=== PATIENT | male | born 1995 | race Asian ===

== ENCOUNTER → 2017-09-17 | Day surgery (SDC) | payer OTHER ==
[2017-09-15 10:11] VITALS: Ht 174 cm; Wt 106.8 kg
[~2017-09-17] VITALS: Ht 174 cm; Wt 106.8 kg
[~2017-09-17] MED LIST: AMOX875T PO; BENZOIN SPRAY 118 ML BTL TOP ONE; CEFAZOLIN 2000MG IV PUSH 15 ML IV SCH; DEXAMETHASONE SOD INJ 4 MG/ML VIAL ONE; FENTANYL CITRATE INJ 50 MCG/1 ML 2 ML VIAL ONE; GLYCOPYRROLATE INJ 0.2 MG/ML VIAL ONE; HYDR-5688 PO; HYDROCODONE/ACETAMIN 5/325MG TAB PO PRN; KETOROLAC TROMETHAMINE 30 MG/ML VIAL IV STA; KETOROLAC TROMETHAMINE 30 MG/ML VIAL ONE; LACTATED RINGER'S 1000ML 1,000 ML IV SCH; LIDOCAINE HCL 2% 2 ML VIAL (20MG/ML) ONE; MEPERIDINE HCL 25 MG/ML CARP ONE; METHYLENE BLUE 0.5% 10 ML VIAL ONE; MIDAZOLAM HCL 1 MG/ML 2ML VIAL ONE; MoRPHine SULFATE 2 MG/ML CARP IV PRN; NEOSTIGMINE METHYLSULFATE 5 MG/5 ML SYR ONE; ONDANSETRON INJ 2 MG/ML 2 ML VIAL IV PRN; ONDANSETRON INJ 2 MG/ML 2 ML VIAL ONE; PROPOFOL IV EMULSION 10 MG/ML 20 ML VIAL IV ONE; ROCURONIUM BROMIDE 10 MG/ML 5 ML VIAL IV ONE
--- NOTE | 2017-09-17 11:10 | History & Physical Bridge Note ---
H&P Re-Evaluation Bridge Note: I have examined the patient, reviewed the History & Physical and in the interval since the performance of the History & Physical I have noted the following changes of clinical significance: No changes noted
--- NOTE | 2017-09-17 11:12 | Discharge Instructions-SurgCtr ---
Discharge Instructions Date of Service Sep 17, 2017. Visit Reason for Visit: Pilonidal Cyst Discharge Discharge Diagnosis / Problem: pilonidal cyst Discharge Goals Goal(s): Decrease discomfort, Prevent Disease Progression Activity Recommendations Activity Limitations: as noted below Lifting Limitations: no more than 10 pounds Exercise/Sports Limitations: none, until after follow-up appointment May Resume Sexual Activity: after follow-up appointment Shower/Bathe: tomorrow (no tub baths) Anesthesia . Post Anesthesia Instructions: If you have had General Anesthesia or IV Sedation: * Do not drive today. * Resume driving when surgeon permits. * Do not make important decisions or sign legal documents today. * Call surgeon for: 1. Temperature elevations greater than 101 degrees F. 2. Uncontrollable pain. 3. Excessive bleeding. 4. Persistent nausea and vomiting. 5. Medication intolerance (nausea, vomiting or rash). * For nausea and vomiting use only clear liquids such as: tea, soda, bouillon until nausea subsides, then gradually increase diet as tolerated. * If you have any concerns or questions, call your surgeon's office. If physician is unavailable and it is an emergency, call 911 or go to the nearest emergency room. . Instructions / Follow-Up Instructions / Follow-Up call [phone] for follow up appointment in 10 days. call if any questions or concerns. Diet Recommendations Home Diet: resume previous diet Procedures Procedures Performed: pilonidal cystectomy Pending Studies Studies pending at discharge: yes List of pending studies: pathology report Medical Emergencies . Who to Call and When: Medical Emergencies: If at any time you feel your situation is an emergency, please call 911 immediately. . Non-Emergent Contact Non-Emergency issues call your: Primary Care Provider, Surgeon Call Non-Emergent contact if: temperature is above 101, wound has increased drainage, wound has increased redness, wound has increased pain . . "Provider Documentation" section prepared by Jordan Main. .
--- NOTE | 2017-09-17 12:29 | [facility] Operative Report ---
Operative Report Operative Date Sep 17, 2017. Pre-Operative Diagnosis Pilonidal cyst Post-Operative Diagnosis Same as preop Procedure(s) Performed Pilonidal Cystectomy Surgeon Dr. Main Epic Analyst Surgeon(s) Les Jenkins PA-C Estimated Blood Loss 20 mL Specimens A: Pilonidal cyst Drains None Anesthesia Type General Complication(s) none Disposition Recovery Room / PACU Description of Procedure After informed consent was obtained the patient was taken to the operating room placed in a supine position. After successful intubation the patient was rolled into a prone jackknife position. The buttocks were taped with benzoin and 3 inch silk tape. Entire lower back area was then sterilely prepped and draped in usual fashion. I began by injecting the sinus tract with methylene blue. I then made a small elliptical incision around the visible sinus tract. We used electrocautery to carry this down through the soft tissue. As we encountered blue dye we noted that it extended superiorly for several inches. We then made a wide elliptical incision above another visible inflamed cyst. This cyst was in fact contiguous with the cyst. We carried down through all the soft tissue to the sacral fascia again using electrocautery. It was an extremely large cyst. It did not go really deep but extended a long distance from superior to inferior. Eventually we were able to take the entire cyst out in 1 large piece. There was no methylene blue dye remaining. We controlled any small bleeding points using electrocautery. Wound was then thoroughly irrigated. We then untaped the buttocks and closed the wound in multiple layers using 0 Vicryl for the deeper layers 2-0 Vicryl for the mid layers and 2- 0 Prolene in an interrupted vertical mattress fashion for the skin. A sterile dressing was then applied. The patient was rolled back to a supine position extubated transferred recovery in stable condition. My physician criminal legal assistant was present through the entire case. He helps prep the patient. He helped with wound retraction as well as wound closure and dressing placement. I attest to the content of the Intraoperative Record and any orders documented therein. Any exceptions are noted below.
--- NOTE | 2017-09-17 13:00 | Anesthesia Progress Nt - [facility] ---
Anesthesia Post Op Note Date & Time Sep 17, 2017 at 13:00 Vital Signs Pain Intensity: 4.0 Vital Signs Past 12 Hours Date Time Temp Pulse Resp B/P (MAP) Pulse Ox O2 Delivery O2 Flow Rate FiO2 09/17/17 12:52 82 15 98 09/17/17 12:52 82 15 09/17/17 12:50 108/65 09/17/17 12:47 83 20 09/17/17 12:47 20 09/17/17 12:45 111/64 09/17/17 12:42 80 17 100 09/17/17 12:42 80 17 09/17/17 12:40 102/67 09/17/17 12:37 71 14 09/17/17 12:37 71 14 97 09/17/17 12:35 114/62 09/17/17 12:33 112/67 09/17/17 12:32 78 5 09/17/17 12:32 36.4 74 16 112/67 100 Mask 5 09/17/17 12:32 86 5 103/41 100 09/17/17 09:40 36.4 81 16 155/97 (116) 96 Room Air Notes Mental Status: alert / awake / arousable, participated in evaluation Pt Amnestic to Procedure: Yes Nausea / Vomiting: adequately controlled Pain: adequately controlled, improving with treatment Airway Patency, RR, SpO2: stable & adequate BP & HR: stable & adequate Hydration State: stable & adequate Anesthetic Complications: no major complications apparent
[2017-09-17 13:36] VITALS: TEMP 36.8
[2017-09-17 14:14] VITALS: BP 117/74; PULSE 89; O2SAT 98
== END | disposition home or self-care (01) ==
LOC: X.SURG 09:27
PROVIDERS: ATTEND Surgery
DX: L05.91 Pilonidal cyst without abscess (principal); E66.9 Obesity, unspecified; Z88.2 Allergy status to sulfonamides; Z68.35 Body mass index [BMI] 35.0-35.9, adult